=== PATIENT | female | born 1995 | race Caucasian/White ===

== ENCOUNTER 2017-08-09 20:10 | Inpatient (IN) ==
[2017-08-09] MEDS ORDERED: BRETHINE SUBQ PRN (20:13)
[2017-08-09] MEDS ORDERED: STADOL IV PRN ×3 (20:13)
[2017-08-09] MEDS ORDERED: ZOFRAN IV PRN (20:13)
[2017-08-09] MEDS ORDERED: TYLENOL PO PRN (20:13)
[2017-08-09] MEDS ORDERED: PEPCID IV PRN (20:13)
[2017-08-09] MEDS ORDERED: AMBIEN PO PRN (20:13)
[2017-08-09] MEDS ORDERED: KEFZOL 1 GM/D5W 1 GM/50 ML IVPB IV PRN (20:13)
[2017-08-09] MEDS: LR 1,000 ML IV SCH (21:25)
[2017-08-09 21:29] LABS: URINE SOURCE VOIDED
[2017-08-09 21:36] LABS: UR AMPHETAMINES QUAL NONE DETECTED (NONE DETECT); UR BARBITUATES QUAL NONE DETECTED (NONE DETECT); UR BENZODIAZEPIN QUAL NONE DETECTED (NONE DETECT); UR CANNABINOIDS QUAL NONE DETECTED (NONE DETECT); UR COCAINE QUAL NONE DETECTED (NONE DETECT); UR MDMA QUAL NONE DETECTED (NONE DETECT); UR METHADONE QUAL NONE DETECTED (NONE DETECT); UR METHAMPHETAMINE QUAL NONE DETECTED (NONE DETECT); UR OPIATES QUAL NONE DETECTED (NONE DETECT); UR OXYCODONE QUAL NONE DETECTED (NONE DETECT); UR PCP QUAL NONE DETECTED (NONE DETECT); UR TCA QUAL NONE DETECTED (NONE DETECT)
[2017-08-09 21:40] LABS: BASO% 0.1 % (0.0-0.8); EOS# 0.52 X1000 (0.0-0.7); EOS% 4.4 % (0.0-10.0); HEMATOCRIT 36.8 % (37.0-47.0); HEMOGLOBIN 12.8 g/dL (12.0-16.0); IMM GRAN# 0.07 X1000 (0.0-0.04); IMM GRAN% 0.6 % (0.0-0.5); LYMPH# 1.68 X1000 (1.2-3.4); LYMPH% 14.2 % (20.5-51.1); MANUAL DIFF NEEDED? YES; MCH 32.6 PG (27-31); MCHC 34.8 g/dL (33-37); MCV 93.6 FL (81-99); MONO% 5.1 % (1.7-9.3); MPV 10.9 FL (7.4-10.4); NEUT% 75.6 % (42.2-75.2); PLT 257 X1000 (130-400); RBC 3.93 XMIL (4.2-5.4)
[2017-08-09 21:41] LABS: BILIRUBIN URINE NEGATIVE (NEGATIVE); BLOOD URINE NEGATIVE (NEGATIVE); CLARITY CLEAR (CLEAR); COLOR YELLOW; GLUCOSE URINE NEGATIVE (NEGATIVE); LEUKOCYTES URINE NEGATIVE (NEGATIVE); NITRITE URINE NEGATIVE (NEGATIVE); PROTEIN URINE NEGATIVE (NEGATIVE); SP GRAVITY URINE 1.015; UROBILINOGEN URINE NORMAL
[2017-08-09 21:48] LABS: BASO 1 % (0-1); LYMPHS 24 % (21-51); MONO 4 % (1-9)
[2017-08-09] MEDS ORDERED: CYTOTEC PO ONE (22:00)
[2017-08-10] MEDS ORDERED: CYTOTEC PO SCH (02:00)
[2017-08-10] MEDS ORDERED: MARCAINE 0.25% PF INJ ONE (05:50)
[2017-08-10] MEDS ORDERED: FENTANYL-BUPIV-NS 2 MCG-0.1% 200 ML EPIDURAL SCH (06:00)
[2017-08-10] MEDS ORDERED: MINERAL OIL ONE (07:31)
[2017-08-10] MEDS ORDERED: XYLOCAINE-MPF 1% INJ ONE (07:31)
[2017-08-10] MEDS: LR 1,000 ML IV SCH (07:34)
[2017-08-10] MEDS: PITOCIN 30 UNITS/LR 30 UNITS/500 ML IV.SOLN IV SCH ×2 (07:49→07:50)
[2017-08-10] MEDS ORDERED: HYDROXYZINE PO PRN (11:47)
[2017-08-10] MEDS ORDERED: PERCOCET-5 PO PRN (11:47)
[2017-08-10] MEDS ORDERED: PERCOCET-10 PO PRN (11:47)
[2017-08-10] MEDS ORDERED: BENADRYL IV PRN (11:47)
[2017-08-10] MEDS ORDERED: PITOCIN 20 UNITS/LR 20 UNITS/1,000 ML IV.SOLN IV SCH (11:47)
[2017-08-10] MEDS ORDERED: BOOSTRIX VACCINE IM ONE (11:47)
[2017-08-10] MEDS ORDERED: AMBIEN PO PRN (11:47)
[2017-08-10] MEDS ORDERED: MINERAL OIL PO PRN (11:47)
[2017-08-10] MEDS ORDERED: M-M-R II VACCINE SUBQ ONE (11:47)
[2017-08-10] MEDS ORDERED: BENADRYL PO PRN (11:47)
[2017-08-10] MEDS ORDERED: XYLOCAINE-MPF 1% INJ PRN (11:47)
[2017-08-10] MEDS ORDERED: PITOCIN IM PRN (11:47)
[2017-08-10] MEDS ORDERED: NORCO-5 PO PRN (11:47)
[2017-08-10] MEDS ORDERED: PERI MEDS (DERMOPLAST/NUPERCAINAL/TUCKS) MISC PRN (11:47)
[2017-08-10] MEDS ORDERED: PITOCIN 30 UNITS/LR 30 UNITS/500 ML IV.SOLN IV ONE (11:47)
[2017-08-10] MEDS ORDERED: HYDROXYZINE IM PRN (11:47)
[2017-08-10] MEDS ORDERED: CYTOTEC PO PRN (11:47)
--- NOTE | 2017-08-10 12:06 | OPERATIVE NOTE ---
PROCEDURE DATE: 08/10/2017 DELIVERING PHYSICIAN: Michael Dawson MD TYPE OF DELIVERY: Spontaneous controlled vaginal delivery. ANESTHESIA: Epidural. FINDINGS: At 11:05, an 8 pound, 2 ounce female infant was delivered in occiput anterior presentation. Apgars have not been assigned at this time. There were no delivery complications. HISTORY OF PRESENT ILLNESS: In summary, Mr. Koehler is a 22-year-old primigravida at 40-1/2 weeks gestation. Her blood type is A positive. Rubella immune. Hepatitis B surface antigen, HIV, and group B strep is negative. DELIVERY NOTE: She was brought into labor and delivery last night to began Cytotec induction of labor. She received 2 doses of Cytotec. She began dilating and received an epidural early this morning. Membranes ruptured when she was 3 cm dilated. There was clear fluid. She did have some variable and early decelerations, but there were otherwise no signs of distress. She progressed to labor rapidly and became complete. She began pushing and very quickly crowned. At that point, she was placed in dorsal lithotomy position. The perineum was prepped and draped in the usual fashion. Spontaneous controlled vaginal delivery occurred. Once the 's head was delivered, the shoulders and body delivered without complications. The oropharynx was bulb suctioned. The cord was clamped and cut. The was handed to the nurses for further care and evaluation. Cord blood was obtained. Placenta was spontaneously delivered and was intact. There was a midline episiotomy which was repaired in layers using 2-0 Vicryl suture. BLOOD LOSS: Approximately 200 mL. COMPLICATIONS: There no complications from delivery. The patient remained in the LDR, recovering without difficulty. cc: MD Raegan Wrgiht MD
[2017-08-10] MEDS: MOTRIN PO PRN ×2 (12:15→20:11)
[2017-08-10] MEDS: NORCO-10 PO PRN (20:11)
[2017-08-10] MEDS: PERICOLACE PO SCH (20:11)
[2017-08-11] MEDS: NORCO-10 PO PRN ×4 (02:04→19:02)
[2017-08-11 05:53] LABS: HEMATOCRIT 35.6 % (37.0-47.0); MCH 32.1 PG (27-31); MCHC 33.7 g/dL (33-37); MCV 95.2 FL (81-99); MPV 10.1 FL (7.4-10.4); RBC 3.74 XMIL (4.2-5.4)
[2017-08-11] MEDS: PRECARE PO SCH (08:22)
[2017-08-11] MEDS: MOTRIN PO PRN ×2 (08:22→19:02)
[2017-08-12] MEDS: NORCO-10 PO PRN ×2 (00:17→06:23)
[2017-08-12] MEDS: PERICOLACE PO SCH (04:38)
[2017-08-12] MEDS: MOTRIN PO PRN (06:24)
[2017-08-12] MEDS: PRECARE PO SCH (08:53)
== END 2017-08-12 11:30 | disposition home or self-care (01) ==
LOC: P.LD 20:10
PROVIDERS: ADMIT Obstetrics & Gynecology; ATTEND Obstetrics & Gynecology